=== PATIENT | male | born 1985 | race African-American/Black ===

== ENCOUNTER 2016-10-05 20:15 | Emergency (ER) | payer SELFPAY ==
[~2016-10-05] VITALS: Ht 170.2 cm; Wt 61.0 kg
[2016-10-05 20:16] VITALS: BP 136/84; PULSE 80; RESP 18; TEMP 98; O2SAT 98
--- NOTE | 2016-10-05 20:48 | PD ---
HPI Chief Complaint: Injury Time Seen by Provider: 20:45 Travel History International Travel<30 days: No Contact w/Intl Traveler<30days: No Traveled to known affect area: No History of Present Illness HPI 31-year-old black male presents to emergency department stating that his right foot hurts from walking. He states that he just came in the town today. He has been walking since 6:00 in the morning. He also states that he has had an upset stomach that and that he needs to get something to eat. He denies any fever chills. No nausea vomiting. No diarrhea. He denies any direct trauma. No numbness or tingling. History Past Medical Histgory Medical History: Denies Significant Hx Tetanus Vaccination: < 5 Years Past Surgical History Surgical History: No Previous Surgery Social History Alcohol Use: No Tobacco Use: No Allergies-Medications (Allergen,Severity, Reaction): Coded Allergies: No Known Allergies (Unverified , 10/05/16) Review of Systems Except as stated in HPI: all other systems reviewed are Neg Physical Exam Narrative GENERAL: Well-developed, well-nourished in no acute distress. Nontoxic appearing. When I have gone to examine the patient's abdomen. It appears that he has taken one of our sheets and stuffed into his pants. He initially refused to have me evaluate his abdomen but I distracted him and lifted up his shirt revealing the sheet pushed into his pants. HEAD: Normocephalic, atraumatic. EYES: Pupils equal round and reactive. Extraocular motions intact. No scleral icterus. No injection or drainage. ENT: TMs clear without erythema. The external auditory canals clear. Nose: clear . Posterior pharynx is pink and moist. No tonsillar edema or exudate. Uvula midline. Airway patent. NECK: Trachea midline.Supple, nontender, moves head freely. No central bony tenderness or spasm. CARDIOVASCULAR: Regular rate and rhythm without murmurs, gallops, or rubs. RESPIRATORY: Clear to auscultation. Breath sounds equal bilaterally. No wheezes , rales, or rhonchi. GASTROINTESTINAL: Abdomen soft, non-tender, nondistended. No hepato-splenomegaly , or palpable masses. No guarding. EXTREMITIES: No clubbing, cyanosis, or edema. No joint tenderness, effusion, or edema noted. BACK: Nontender without deformity or crepitance. No flank tenderness. Data Data Last Documented VS Vital Signs Date Time Temp Pulse Resp B/P Pulse Ox O2 Delivery O2 Flow Rate FiO2 10/05/16 20:16 98.0 80 18 136/84 98 MDM Medical Screen Exam Complete: Yes Emergency Medical Condition: Yes Differential Diagnosis MDM: High Differential diagnoses: Fracture, sprain, strain, dislocation, contusion, neurovascular injury, homelessness Narrative Course A medical screening exam was performed: At the time of evaluation the presenting medical condition was determined not to be of an emergent nature. The patient was given the option of receiving additional care, but declined. Patient was given options for additional community resources from which to obtain care. The Patient Has Been advised to seek medical attention for their presenting complaint. The patient has been advised to return to the ER at any time if an emergent condition develops. The screener has been advised that the patient has taken one of our sheets and stuffed in his pants. Primary Impression: Encounter for medical screening examination Condition: Stable Jonatan Ford Oct 05, 2016 20:48
== END 2016-10-05 21:06 | disposition left against medical advice (07) ==
LOC: NEPB 20:15
DX: M79.671 Pain in right foot (principal)
CPT/HCPCS: 99281

== ENCOUNTER 2017-04-18 18:00 | Emergency (ER) | payer SELFPAY ==
[~2017-04-18] VITALS: Ht 170.2 cm; Wt 59.0 kg
[2017-04-18 18:03] VITALS: BP 155/95; PULSE 57; RESP 15; TEMP 97.9; O2SAT 97
--- NOTE | 2017-04-18 18:33 | PD ---
HPI Chief Complaint: ENT Complaint Time Seen by Provider: 18:32 Travel History International Travel<30 days: No Contact w/Intl Traveler<30days: No Traveled to known affect area: No History of Present Illness HPI 32-year-old male presents emergency Department with complaint of sore throat for 3 days. Denies fever, vomiting. Denies ear pain, nasal congestion, cough. Denies lump in throat, difficulty swallowing, unusual drooling. Has not taken any medications or tried any treatments to alleviate his symptoms. Symptoms are mild in severity. Has no other medical complaints. No known allergies. No other modifying factors or associated signs and symptoms. History Social History Alcohol Use: Yes Tobacco Use: Yes Allergies-Medications (Allergen,Severity, Reaction): Coded Allergies: No Known Allergies (Unverified , 10/05/16) Reported Meds & Prescriptions Reported Meds & Active Scripts Active No Active Prescriptions or Reported Medications Review of Systems Except as stated in HPI: all other systems reviewed are Neg Physical Exam Narrative GENERAL: Well-nourished, well-developed male patient, in no acute distress; afebrile, nontoxic-appearing SKIN: Warm and dry. No rash. HEAD: Atraumatic. Normocephalic. EYES: Pupils equal and round at 3 mm with brisk reaction. No scleral icterus. No injection or drainage. PERRLA. ENT: Mucosa pink and dry. Oropharynx without erythema, exudate, and edema. No Uvular edema. No uvular, palatal, or tonsillar deviation. Airway patent. EARS: Bilateral pinnae and external canals appear within normal limits. Bilateral tympanic membranes without erythema, dullness or perforation.. NECK: Trachea midline. Anterior cervical lymphadenopathy and tenderness. CARDIOVASCULAR: Regular rate. RESPIRATORY: No accessory muscle use. GASTROINTESTINAL: Flat. MUSCULOSKELETAL: No obvious deformities. No clubbing. No cyanosis. No edema. NEUROLOGICAL: Awake and alert. Oriented 3. No obvious cranial nerve deficits. Motor grossly within normal limits. Normal speech. Moves all extremities. PSYCHIATRIC: Appropriate mood and affect; insight and judgment normal. Data Data Last Documented VS Vital Signs Date Time Temp Pulse Resp B/P Pulse Ox O2 Delivery O2 Flow Rate FiO2 04/18/17 18:03 97.9 57 15 155/95 97 MDM Medical Screen Exam Complete: Yes Emergency Medical Condition: No Differential Diagnosis Sore throat, pharyngitis Narrative Course 32-year-old male with sore throat 3 days. He is afebrile and nontoxic- appearing. He denies fever, vomiting. Denies lump in throat, difficulty swelling, unusual drooling. The oropharynx is without erythema, edema, exudate. Is going to perform a rapid strep and the patient refused. He said all he wants is ibuprofen. Instructed patient ibuprofen was [id number]. Patient was provided an information sheet to [facility] and discussed reasons to return to emergency department. Vital signs are stable and the patient is stable for outpatient follow-up and treatment. The patient has no urgent or emergent medical complaints. There is no emergent or urgent medical need at this time. I instructed the patient to follow up with their primary care provider. A medical screening exam was performed: At the time of evaluation the presenting medical condition was determined not to be of an emergent nature. The patient was given the option of receiving additional care, but declined. Patient was given options for additional community resources from which to obtain care. The Patient Has Been advised to seek medical attention for their presenting complaint. The patient has been advised to return to the ER at any time if an emergent condition develops. Primary Impression: Encounter for medical screening examination Scripts No Active Prescriptions or Reported Meds Condition: Stable Inna Navarro Apr 18, 2017 18:33
== END 2017-04-18 19:25 | disposition left against medical advice (07) ==
LOC: NEPK 18:00
DX: J02.9 Acute pharyngitis, unspecified (principal); Z72.0 Tobacco use
CPT/HCPCS: 99281

== ENCOUNTER 2017-11-03 18:47 | Emergency (ER) | payer SELFPAY ==
[2017-11-03 19:07] VITALS: BP 140/91; PULSE 63; RESP 14; TEMP 97.9; O2SAT 100
--- NOTE | 2017-11-03 20:42 | PD ---
HPI Chief Complaint: Alcohol/Drug Intoxication Time Seen by Provider: 19:07 Travel History International Travel<30 days: No Contact w/Intl Traveler<30days: No Traveled to known affect area: No History of Present Illness HPI 32-year-old male presents to emergency department for evaluation of "feeling weird." Patient states that he smoked somebody else's weed and it made him feel different than we typically does. Denies any chest or tightness. No difficulty breathing. Denies any other illicit drug use. He has no other symptoms to report. [facility] Past Medical History Medical History: Denies Significant Hx Social History Alcohol Use: Yes Tobacco Use: Yes Substance Use: Yes (POT) Allergies-Medications (Allergen,Severity, Reaction): Coded Allergies: No Known Allergies (Unverified , 10/05/16) Reported Meds & Prescriptions Reported Meds & Active Scripts Active No Active Prescriptions or Reported Medications Review of Systems Except as stated in HPI: all other systems reviewed are Neg Physical Exam Narrative Nontoxic appearing male in no acute distress. Even respirations. Regular heart rate. He does have a bizarre affect. Moves all extremities. Speaks clearly to me. Data Data Last Documented VS Vital Signs Date Time Temp Pulse Resp B/P (MAP) Pulse Ox O2 Delivery O2 Flow Rate FiO2 11/03/17 19:07 97.9 63 14 140/91 (107) 100 MDM Medical Decision Making Medical Screen Exam Complete: Yes Emergency Medical Condition: Yes Medical Record Reviewed: Yes Differential Diagnosis Polysubstance abuse versus mood disorder versus personality disorder Narrative Course 32-year-old male presents to emergency department for evaluation after smoking marijuana that was not his. Patient appears nontoxic. His vital signs are stable. Prior to placement, patient chooses to leave. AMA: The risks of leaving against medical advice without further evaluation treatment were discussed with the patient. These risks include cardiac dysfunction, cardiac dysrhythmia, possible heart attack, possible stroke or . The patient indicated understanding of these risks and appeared to have the capacity to make this decision. Diagnosis Primary Impression: Substance abuse Scripts No Active Prescriptions or Reported Meds Disposition: 07 AGAINST MEDICAL ADVICE Condition: Stable Susy ReedP Nov 03, 2017 20:42
== END 2017-11-03 20:17 | disposition left against medical advice (07) ==
LOC: NED 18:47
DX: F19.10 Other psychoactive substance abuse, uncomplicated (principal); Z72.0 Tobacco use; Z53.21 Procedure and treatment not carried out due to patient leaving prior to being seen by health care provider
CPT/HCPCS: 99281